=== PATIENT | male | born 1970 | race Caucasian/White ===

== ENCOUNTER 2017-05-20 17:12 | Observation (INO) | payer MEDICAID ==
[~2017-05-20] VITALS: Ht 182.9 cm; Wt 85.0 kg
[2017-05-20] MEDS ORDERED: LORazepam 1MG TABLET ONE (17:48)
[2017-05-20 17:58] LABS: BLOOD UREA NITROGEN 11 mg/dL (7-18)
[2017-05-20] MEDS ORDERED: LORazepam 1MG TABLET PO ONE (18:00)
[2017-05-20 18:02] LABS: ACETAMINOPHEN < 2 mcg/mL (10-30); ASPARTATE AMINO TRANSFERASE 33 U/L (15-37)
[2017-05-20 18:15] LABS: HEMATOCRIT 51.3 % (39.2-51.8); HEMOGLOBIN 17.6 g/dL (13.7-18.0); WHITE BLOOD COUNT 4.2 x10^3/uL (3.4-10)
[2017-05-20 18:39] LABS: DAU SCREEN DISCLAIMER
[2017-05-20] MEDS ORDERED: ONDANSETRON ODT 4 MG PO PRN (21:00)
[2017-05-20] MEDS ORDERED: DOCUSATE 100 MG CAPSULE PO PRN (21:00)
[2017-05-20] MEDS: NICOTINE 21 MG/24 HR PATCH.TD24 TD SCH (21:00)
[2017-05-20 22:43] VITALS: BP 106/63
[2017-05-20 23:13] VITALS: BP 102/70
[2017-05-21] MEDS: TRAZODONE 50MG TABLET PO PRN ×2 (01:18→19:59)
[2017-05-21 08:08] VITALS: BP 94/60
[2017-05-21] MEDS: SERTRALINE 50MG TABLET PO SCH (09:39)
[2017-05-21] MEDS: ACETAMINOPHEN 325 MG TABLET PO PRN (15:48)
[2017-05-21 19:33] VITALS: BP 103/69
[2017-05-21] MEDS: NICOTINE 21 MG/24 HR PATCH.TD24 TD SCH (19:59)
[2017-05-22 08:20] VITALS: BP 91/66
[2017-05-22] MEDS: SERTRALINE 50MG TABLET PO SCH (09:07)
[2017-05-22] MEDS: ACETAMINOPHEN 325 MG TABLET PO PRN (13:54)
== END 2017-05-22 17:14 ==
LOC: ED 20:22 → INTOOBSV 20:39 → EDIP 20:39 → 3E 22:38
PROVIDERS: ADMIT Internal Medicine; ATTEND Internal Medicine
DX: R45.851 Suicidal ideations (principal); F32.9 Major depressive disorder, single episode, unspecified; F10.20 Alcohol dependence, uncomplicated; F12.90 Cannabis use, unspecified, uncomplicated; F17.210 Nicotine dependence, cigarettes, uncomplicated
CPT/HCPCS: 36415; 80053; 80307; 80329; 85025; 99285; G0378; Q0177; G0479; G0480

== ENCOUNTER 2018-05-05 18:54 | Observation (INO) | payer MEDICAID ==
[~2018-05-05] VITALS: Ht 182.9 cm; Wt 77.5 kg
[2018-05-05 19:15] LABS: BASOPHILS # (AUTO) 0.06 x10^3/uL (0-0.1); BASOPHILS % (AUTO) 1 % (0-1); EOSINOPHILS # (AUTO) 0.16 x10^3/uL (0-0.4); EOSINOPHILS % (AUTO) 3 % (1-7); LYMPHOCYTES # (AUTO) 1.85 x10^3/uL (1-3.4); LYMPHOCYTES % (AUTO) 31 % (22-44); MD NO; MEAN CORPUSCULAR HEMOGLOBIN 34.9 pg (27.5-34.5); MEAN CORPUSCULAR HGB CONC 34.5 g/dL (33.2-36.2); MEAN CORPUSCULAR VOLUME 101.3 fL (81-97); MEAN PLATELET VOLUME 9.9 fL (7.4-10.4); MONOCYTES # (AUTO) 0.38 x10^3/uL (0.2-0.8); MONOCYTES % (AUTO) 6 % (2-9); NEUTROPHILS # (AUTO) 3.51 x10^3/uL (1.8-6.8); NEUTROPHILS % (AUTO) 59 % (42-75); PLATELET COUNT 212 x10^3/uL (130-400); RED BLOOD COUNT 4.53 x10^6/uL (4.38-5.82); RED CELL DISTRIBUTION WIDTH 14.2 % (9.4-14.8)
[2018-05-05 19:25] LABS: ALANINE AMINOTRANSFERASE 42 U/L (12-78); ALBUMIN 3.2 g/dL (3.4-5.0); ANION GAP 6 mmol/L (5-15); CALCIUM 8.3 mg/dL (8.5-10.1); CHLORIDE 109 mmol/L (98-107); CREATININE 1.02 mg/dL (0.7-1.3); SALICYLATE LEVEL 3.3 mg/dL (2.8-20.0)
[2018-05-05 19:27] LABS: ALKALINE PHOSPHATASE 57 U/L (45-117); BILIRUBIN,TOTAL 0.2 mg/dL (0.2-1.0); TOTAL PROTEIN 7.3 g/dL (6.4-8.2)
[2018-05-05 19:29] LABS: ACETAMINOPHEN < 2 mcg/mL (10-30)
[2018-05-05 19:38] LABS: AMPHETAMINE SCREEN, URINE Negative (Negative); BARBITURATE SCREEN, URINE Negative (Negative); BENZODIAZEPINE SCREEN, URINE Negative (Negative); CANNABINOID SCREEN, URINE Positive (Negative); COCAINE SCREEN, URINE Negative (Negative); METHADONE SCREEN, URINE Negative (Negative); OPIATE SCREEN, URINE Negative (Negative)
[2018-05-06] MEDS ORDERED: ONDANSETRON ODT 4 MG PO PRN (06:00)
[2018-05-06] MEDS ORDERED: LORazepam 0.5MG TABLET PO PRN (06:00)
[2018-05-06] MEDS ORDERED: ZIPRASIDONE 20 MG INJ IM PRN (06:00)
[2018-05-06] MEDS ORDERED: DOCUSATE 100 MG CAPSULE PO PRN (06:00)
[2018-05-06] MEDS ORDERED: LORazepam 1MG TABLET PO PRN (06:00)
[2018-05-06] MEDS ORDERED: NICOTINE 7 MG/24 HR PATCH.TD24 ONE (08:52)
[2018-05-06] MEDS ORDERED: THIAMINE 100MG TABLET ONE (08:52)
[2018-05-06] MEDS: NICOTINE 7 MG/24 HR PATCH.TD24 TD SCH (09:00)
[2018-05-06] MEDS: FOLIC ACID 1 MG TABLET PO SCH (12:31)
[2018-05-06] MEDS: THIAMINE 100MG TABLET PO SCH (12:31)
[2018-05-06] MEDS: MULTIVITAMIN 1 TABLET PO SCH (12:31)
[2018-05-06] MEDS ORDERED: LORazepam 1MG TABLET ONE (18:02)
[2018-05-07] MEDS ORDERED: LORazepam 0.5MG TABLET ONE (08:28)
[2018-05-07] MEDS: MULTIVITAMIN 1 TABLET PO SCH (13:06)
[2018-05-07] MEDS: THIAMINE 100MG TABLET PO SCH (13:06)
[2018-05-07] MEDS: FOLIC ACID 1 MG TABLET PO SCH (13:06)
[2018-05-07] MEDS: NICOTINE 7 MG/24 HR PATCH.TD24 TD SCH (13:07)
[2018-05-07 13:10] VITALS: BP 120/88
[2018-05-07] MEDS: ACETAMINOPHEN 325 MG TABLET PO PRN ×2 (13:11→21:35)
[2018-05-07 19:52] VITALS: BP 116/78
[2018-05-07] MEDS: LORazepam 1MG TABLET PO PRN (21:34)
[2018-05-08 07:40] VITALS: BP 107/74
[2018-05-08] MEDS: FOLIC ACID 1 MG TABLET PO SCH (09:00)
[2018-05-08] MEDS: THIAMINE 100MG TABLET PO SCH (09:00)
[2018-05-08] MEDS: MULTIVITAMIN 1 TABLET PO SCH (09:00)
[2018-05-08] MEDS: NICOTINE 7 MG/24 HR PATCH.TD24 TD SCH ×2 (09:47→13:29)
[2018-05-08] MEDS ORDERED: HYDR25TA11 PO (10:55)
[2018-05-08] MEDS ORDERED: NICO-485 TD (10:55)
[2018-05-08] MEDS: LORazepam 1MG TABLET PO PRN ×2 (13:29→19:59)
[2018-05-08 19:34] VITALS: BP 99/65
[2018-05-08 19:55] VITALS: BP 111/78
[2018-05-08] MEDS: ACETAMINOPHEN 325 MG TABLET PO PRN (19:58)
[2018-05-09 07:56] VITALS: BP 86/53
[2018-05-09] MEDS: THIAMINE 100MG TABLET PO SCH (09:13)
[2018-05-09] MEDS: MULTIVITAMIN 1 TABLET PO SCH (09:13)
[2018-05-09] MEDS: FOLIC ACID 1 MG TABLET PO SCH (09:14)
[2018-05-09] MEDS: ACETAMINOPHEN 325 MG TABLET PO PRN (09:22)
[2018-05-09 09:26] VITALS: BP 95/61
[2018-05-09 12:24] VITALS: BP 105/72
[2018-05-09] MEDS: LORazepam 1MG TABLET PO PRN ×2 (12:28→18:11)
[2018-05-09] MEDS ORDERED: NICOTINE 7 MG/24 HR PATCH.TD24 TD SCH (13:00)
[2018-05-09] MEDS: POLYETHYLENE GLYCOL 17 GM PACKET PO PRN (18:15)
[2018-05-09 19:33] VITALS: BP 114/74
[2018-05-10 07:17] VITALS: BP 84/54
[2018-05-10] MEDS: NICOTINE 7 MG/24 HR PATCH.TD24 TD SCH (09:01)
[2018-05-10] MEDS: FOLIC ACID 1 MG TABLET PO SCH (09:01)
[2018-05-10] MEDS: THIAMINE 100MG TABLET PO SCH (09:01)
[2018-05-10] MEDS: MULTIVITAMIN 1 TABLET PO SCH (09:01)
[2018-05-10] MEDS: LORazepam 1MG TABLET PO PRN ×3 (09:07→20:41)
[2018-05-10] MEDS: ACETAMINOPHEN 325 MG TABLET PO PRN (14:30)
[2018-05-10] MEDS ORDERED: HEMORRHOIDAL OINT, 28 GM (PREP H) RC PRN (15:30)
[2018-05-10] MEDS ORDERED: NICOTINE 7 MG/24 HR PATCH.TD24 TD SCH (16:00)
[2018-05-10] MEDS: POLYETHYLENE GLYCOL 17 GM PACKET PO PRN (17:49)
[2018-05-10 19:20] VITALS: BP_SYST 131; BP_SYST 97; BP_DIAS 61; BP_DIAS 84
[2018-05-10 20:32] VITALS: BP 103/71
[2018-05-11 07:42] VITALS: BP 126/68
[2018-05-11] MEDS: FOLIC ACID 1 MG TABLET PO SCH (08:28)
[2018-05-11] MEDS: MULTIVITAMIN 1 TABLET PO SCH (08:28)
[2018-05-11] MEDS: THIAMINE 100MG TABLET PO SCH (08:28)
[2018-05-11] MEDS: NICOTINE 7 MG/24 HR PATCH.TD24 TD SCH (08:32)
[2018-05-11] MEDS: LORazepam 1MG TABLET PO PRN ×3 (08:34→18:01)
[2018-05-11] MEDS: ACETAMINOPHEN 325 MG TABLET PO PRN (12:48)
[2018-05-11 19:30] VITALS: BP 103/66
[2018-05-12 08:14] VITALS: BP 107/70
[2018-05-12] MEDS: THIAMINE 100MG TABLET PO SCH (09:03)
[2018-05-12] MEDS: MULTIVITAMIN 1 TABLET PO SCH (09:03)
[2018-05-12] MEDS: FOLIC ACID 1 MG TABLET PO SCH (09:03)
[2018-05-12] MEDS: NICOTINE 7 MG/24 HR PATCH.TD24 TD SCH (09:13)
[2018-05-12] MEDS: LORazepam 1MG TABLET PO PRN ×2 (09:43→16:15)
[2018-05-12] MEDS: ZIPRASIDONE 20MG CAPSULE PO PRN ×2 (12:17→20:12)
[2018-05-12 12:18] VITALS: BP 101/70
[2018-05-12 19:47] VITALS: BP 97/64
[2018-05-13 07:52] VITALS: BP 98/66
[2018-05-13] MEDS: FOLIC ACID 1 MG TABLET PO SCH (09:16)
[2018-05-13] MEDS: THIAMINE 100MG TABLET PO SCH (09:17)
[2018-05-13] MEDS: NICOTINE 7 MG/24 HR PATCH.TD24 TD SCH (09:17)
[2018-05-13] MEDS: MULTIVITAMIN 1 TABLET PO SCH (09:17)
[2018-05-13] MEDS: LORazepam 1MG TABLET PO PRN ×3 (09:21→16:17)
[2018-05-13] MEDS ORDERED: LORazepam 1MG TABLET PO PRN (12:00)
[2018-05-13] MEDS: ZIPRASIDONE 20MG CAPSULE PO PRN ×2 (16:57→20:47)
[2018-05-13 19:46] VITALS: BP 88/58
[2018-05-14] MEDS: FOLIC ACID 1 MG TABLET PO SCH (07:57)
[2018-05-14] MEDS: THIAMINE 100MG TABLET PO SCH (07:57)
[2018-05-14] MEDS: NICOTINE 7 MG/24 HR PATCH.TD24 TD SCH (07:57)
[2018-05-14] MEDS: MULTIVITAMIN 1 TABLET PO SCH (07:57)
[2018-05-14 08:00] VITALS: BP 96/69
[2018-05-14] MEDS: ZIPRASIDONE 20MG CAPSULE PO PRN (08:01)
[2018-05-14] MEDS: LORazepam 1MG TABLET PO PRN (08:01)
[2018-05-14 10:16] VITALS: BP 100/62
[2018-05-14] MEDS: QUETIAPINE 25MG TABLET PO PRN ×2 (12:58→16:37)
[2018-05-14] MEDS: NICOTINE GUM 2 MG BC PRN ×2 (12:59→16:37)
[2018-05-14] MEDS: POLYETHYLENE GLYCOL 17 GM PACKET PO PRN (16:03)
[2018-05-14 19:35] VITALS: BP 106/71
[2018-05-14] MEDS: ACETAMINOPHEN 325 MG TABLET PO PRN (20:30)
[2018-05-14] MEDS ORDERED: DIVALPROEX 500 MG TAB.ER.24H PO SCH (21:00)
[2018-05-14] MEDS ORDERED: QUETIAPINE 100MG TABLET PO SCH (21:00)
[2018-05-15] MEDS: QUETIAPINE 25MG TABLET PO PRN (06:24)
[2018-05-15] MEDS: NICOTINE GUM 2 MG BC PRN (06:27)
[2018-05-15 08:01] VITALS: BP 105/73
[2018-05-15] MEDS: FOLIC ACID 1 MG TABLET PO SCH (08:29)
[2018-05-15] MEDS: THIAMINE 100MG TABLET PO SCH (08:29)
[2018-05-15] MEDS: MULTIVITAMIN 1 TABLET PO SCH (08:29)
[2018-05-15] MEDS ORDERED: QUETIAPINE 100MG TABLET PO SCH (11:00)
[2018-05-15] MEDS ORDERED: QUETIAPINE 100MG TABLET ONE ×2 (11:05→11:06)
== END 2018-05-15 12:18 | disposition home or self-care (01) ==
LOC: ED 21:29 → SUATTDRO 05-06 05:06 → EDIP 05-06 05:08 → 2N 05-07 13:03
PROVIDERS: ADMIT Family Medicine; ATTEND Family Medicine
DX: R45.851 Suicidal ideations (principal); F10.229 Alcohol dependence with intoxication, unspecified; F17.200 Nicotine dependence, unspecified, uncomplicated; F31.81 Bipolar II disorder; F41.9 Anxiety disorder, unspecified; I10 Essential (primary) hypertension; Z81.1 Family history of alcohol abuse and dependence; F90.9 Attention-deficit hyperactivity disorder, unspecified type; F12.90 Cannabis use, unspecified, uncomplicated
CPT/HCPCS: 36415; 80053; 80307; 80329; 85025; 99285; G0378; Q0177; G0480